=== PATIENT | male | born 1955 | race Caucasian/White ===

== ENCOUNTER 2020-05-16 12:52 | Inpatient (IN) | payer OTHER ==
[~2020-05-16] VITALS: Ht 188 cm; Wt 140.4 kg
[2020-05-16 13:54] LABS: BASOPHILS % (AUTO) 0.3 % (0.0-5.0); EOSINOPHILS % (AUTO) 1.6 % (0.0-8.0); HEMATOCRIT 43.1 % (42-54); MEAN CORPUSCULAR HGB CONC 32.3 g/dL (32.0-36.0); MEAN CORPUSCULAR VOLUME 99.3 fL (79-99); MONOCYTES % (AUTO) 8.2 % (3.0-13.0); NEUTROPHILS % (AUTO) 70.7 % (40.0-77.0); PLATELET COUNT (AUTO) 231 K/uL (130-400); RED BLOOD CELL COUNT(AUTO) 4.34 MIL/uL (4.50-6.20); RED CELL DISTRIBUTION WIDTH 13.4 % (11.0-15.5); WHITE BLOOD COUNT (AUTO) 9.8 K/uL (4.8-10.8)
[2020-05-16 14:14] LABS: INR 0.88 (0.85-1.15); PARTIAL THROMBOPLASTIN TIME 28.5 SEC (26.3-35.5); PROTHROMBIN TIME 9.6 SEC (9.6-11.6)
[2020-05-16 14:38] LABS: CARBON DIOXIDE 31 mmol/L (21-32); CHLORIDE 97 mmol/L (101-111); CREATININE 0.8 mg/dL (0.5-1.5); GLOMERULAR FILTR. RATE CALC 103 mL/min (>60); GLUCOSE,RANDOM 158 mg/dL (70-105); POTASSIUM 4.3 mmol/L (3.5-5.1); SODIUM SERUM 135 mmol/L (136-145); UREA NITROGEN, BLOOD 12 mg/dL (7-18)
[2020-05-16 14:51] LABS: ALANINE AMINOTRANSFERASE 20 U/L (12-78); ALBUMIN 3.2 g/dL (3.5-5.0); ASPARTATE AMINOTRANSFERASE 12 U/L (10-37); BILIRUBIN,TOTAL 0.4 mg/dL (0.2-1.0); CREATINE KINASE, TOTAL 48 U/L (21-232); MYOGLOBIN 21 ng/mL (10-92); TOTAL PROTEIN, SERUM 7.4 g/dL (6.0-8.3); TROPONIN I < 0.04 ng/mL (0.00-0.06)
[2020-05-16 15:10] LABS: APPEARANCE,URINE Clear (CLEAR); BILIRUBIN,URINE Negative (NEGATIVE); COLOR,URINE Yellow (YELLOW); GLUCOSE, URINE (UA) Negative (NEGATIVE); KETONES,URINE Negative (NEGATIVE); LEUKOCYTE ESTERASE ,URINE Negative (NEGATIVE); NITRATE,URINE Negative (NEGATIVE); OCCULT BLOOD,URINE Negative (NEGATIVE); PROTEIN,URINE Negative (NEGATIVE)
[2020-05-16] MEDS ORDERED: RENAL DOSE IV SCH (15:30)
[2020-05-16] MEDS: ZOSYN 3.375GM+NS 50ML 50 ML IV SCH (15:30)
[2020-05-16] MEDS ORDERED: VANCOMYCIN PROTOCOL PER PHARMACY IV SCH (15:30)
[2020-05-16] MEDS ORDERED: GUAIFENESIN-DM 200/20 MG 10 ML PO PRN (15:45)
[2020-05-16] MEDS ORDERED: LACTULOSE 20 GM/30 ML UDCUP PO PRN (15:45)
[2020-05-16] MEDS ORDERED: NITROGLYCERIN 0.4 MG SL TAB SL PRN (15:45)
[2020-05-16] MEDS ORDERED: COMPOUND IV REFRIGERATED 1 EACH IVSOLN MISC PRN (15:45)
[2020-05-16] MEDS ORDERED: DIPHENHYDRAMINE HCL 25 MG CAPSULE PO PRN (15:45)
[2020-05-16] MEDS ORDERED: ACETAMINOPHEN 325 MG TAB PO PRN (15:45)
[2020-05-16] MEDS ORDERED: DiphenhydrAMINE HCL 50 MG/ML VIAL IV PRN (15:45)
[2020-05-16] MEDS ORDERED: MAG HYDROX/AL HYDROX/SIMETH ES 30 ML SUSP UDCUP PO PRN (15:45)
[2020-05-16] MEDS ORDERED: ONDANSETRON HCL 4 MG/2 ML VIAL IV PRN (15:45)
[2020-05-16] MEDS: NICOTINE 14 MG/ 24 HR PATCH TD SCH (16:00)
[2020-05-16] MEDS ORDERED: VANCOMYCIN 2 GM in SODIUM CHLORIDE 0.9% 500ML 500 ML IV SCH (16:00)
[2020-05-16] MEDS ORDERED: ENOXAPARIN SODIUM 40 MG/0.4 ML SYRINGE SQ ONE (22:27)
[2020-05-16] MEDS ORDERED: FAMOTIDINE/PF 20 MG/2 ML VIAL IV ONE (22:27)
[2020-05-17] VITALS (20 sets, daily range): BP systolic 89–138; BP diastolic 56–86
[2020-05-17] MEDS: VANCOMYCIN 1.5 GM in SODIUM CHLORIDE 0.9% 250 ML IV SCH (00:43)
[2020-05-17] MEDS ORDERED: ZOSYN 3.375GM+NS 50ML 50 ML IV ONE (04:15)
[2020-05-17 06:55] LABS: BASOPHILS % (AUTO) 0.5 % (0.0-5.0); EOSINOPHILS % (AUTO) 1.9 % (0.0-8.0); HEMATOCRIT 42.4 % (42-54); LYMPHOCYTES % (AUTO) 28.5 % (21.0-51.0); MEAN CORPUSCULAR HEMOGLOBIN 31.1 pg (27.0-33.0); MEAN CORPUSCULAR HGB CONC 31.1 g/dL (32.0-36.0); MEAN CORPUSCULAR VOLUME 99.8 fL (79-99); MONOCYTES % (AUTO) 8.7 % (3.0-13.0); NEUTROPHILS % (AUTO) 60.1 % (40.0-77.0); PLATELET COUNT (AUTO) 251 K/uL (130-400); RED BLOOD CELL COUNT(AUTO) 4.25 MIL/uL (4.50-6.20); RED CELL DISTRIBUTION WIDTH 13.4 % (11.0-15.5); WHITE BLOOD COUNT (AUTO) 7.4 K/uL (4.8-10.8)
[2020-05-17 07:29] LABS: ALBUMIN 2.9 g/dL (3.5-5.0); BILIRUBIN,TOTAL 0.4 mg/dL (0.2-1.0); CREATININE 0.7 mg/dL (0.5-1.5); POTASSIUM 4.3 mmol/L (3.5-5.1); TOTAL PROTEIN, SERUM 6.8 g/dL (6.0-8.3)
--- NOTE | 2020-05-17 13:49 | NUR ---
DCP CM spoke to pt's spouse Kira Hussein discussed dc plans. Pt is independent prior to admission, lives at home with spouse. Denies any equipments/services. Feels safe to go back home, still drives, spouse able to assist with transportation and needs as necessary. DC plan to home once stable. CM to cont to follow up. Addendum: 05/17/20 at 1350 by LIMA DE DIOS LVN CM Amended: Links added.
[2020-05-17] MEDS ORDERED: PROPOFOL 10 MG/ML 20ML VIAL IV ONE (17:16)
[2020-05-17] MEDS ORDERED: MIDAZOLAM HCL 1 MG/ML 2ML VIAL ONE (17:16)
[2020-05-17] MEDS ORDERED: LIDOCAINE PF 2% 5ML ABBOJECT ONE (17:16)
[2020-05-17] MEDS ORDERED: ONDANSETRON HCL 4 MG/2 ML VIAL ONE (17:17)
[2020-05-17] MEDS ORDERED: FENTANYL CITRATE PF 50 MCG/1 ML 2ML VIAL ONE (17:17)
[2020-05-17] MEDS ORDERED: CEFAZOLIN SODIUM 1 GM VIAL ONE (17:49)
[2020-05-17] MEDS ORDERED: LIDOCAINE HCL 1% 20 ML VIAL ONE (17:51)
[2020-05-17] MEDS ORDERED: BUPIVACAINE/PF 0.5% 30ML VIAL ONE (17:51)
[2020-05-17] MEDS ORDERED: MEPERIDINE-PF 25 MG/ML SYG ONE (18:03)
[2020-05-17] MEDS ORDERED: ESMOLOL HCL 10 MG/ML 10 ML VIAL ONE (18:16)
[2020-05-17] MEDS ORDERED: PHENYLEPHRINE HCL 10 MG/ML 1ML VIAL IV ONE (18:23)
[2020-05-17] MEDS ORDERED: MORPHINE SULFATE 2 MG/ML 1ML SYG IM PRN (19:15)
--- NOTE | 2020-05-17 20:02 | NUR ---
NICOTINE PATCH DUE AT 1600 WAS SCANNED NOT GIVEN DUE TO PATIENT WAS IN ER THAN OR , I RECEIVED PATIENT FROM OR AT 1851, ZOSYN DUE AT 1730 SCANNED NOT GIVEN , PT IN OR AND RECEIVED ANCEF 3GM AT 1755.
[2020-05-17] MEDS ORDERED: SIMV80TA91 PO (22:26)
[2020-05-17] MEDS ORDERED: GLIP10TA9 PO (22:26)
[2020-05-17] MEDS ORDERED: OMEG-125 PO (22:26)
[2020-05-17] MEDS ORDERED: METF-444 PO (22:26)
[2020-05-17] MEDS ORDERED: ACET-2743 PO (22:26)
[2020-05-17] MEDS ORDERED: VITAMIN D3 (22:26)
[2020-05-17] MEDS ORDERED: CLIN300C9 PO (22:26)
[2020-05-17] MEDS ORDERED: OXYC1TAB12 PO (22:26)
[2020-05-17] MEDS ORDERED: LISI-613 PO (22:26)
[2020-05-17] MEDS ORDERED: GABA300C PO (22:26)
[2020-05-17] MEDS ORDERED: LIDOCAINE PATCH TP (22:26)
[2020-05-17] MEDS ORDERED: MIRT30TA6 PO (22:26)
[2020-05-17] MEDS ORDERED: GLUCAGON 1MG KIT 1 MG ML IM PRN (23:30)
[2020-05-17] MEDS ORDERED: DEXTROSE 50%-WATER 50 ML DISP.SYRIN IV PRN (23:30)
[2020-05-18] VITALS (9 sets, daily range): BP systolic 83–131; BP diastolic 54–89
[2020-05-18] MEDS: ZOSYN 3.375GM+NS 50ML 50 ML IV SCH ×3 (00:12→15:30)
[2020-05-18] MEDS ORDERED: VANCOMYCIN 1GM+NS 250ML 500 ML IV ONE (00:31)
--- NOTE | 2020-05-18 00:33 | NUR ---
Patient resting in bed with eyes closed, but wakes up easily. B/P has decreased since arriving on this floor, b/p currently 78/60, p 121, asymptomatic. Patient fixed in bed, foot of bed elevated. States this has happened before at home and while he was at [facility], states has seen Dr. Yates in the past and decreased Lisinopril to 5mg daily. He last took his Lisinopril yesterday am, no b/p meds takes tonight. Will continue to monitor.
[2020-05-18] MEDS: FAMOTIDINE 20MG TAB 20 MG TAB PO SCH ×3 (00:40→21:00)
--- NOTE | 2020-05-18 01:00 | NUR ---
B/P increased, currently 89/56, p 121, patient continues asymptomatic. Wound vac to left foot at 125 continuous, working, but no drainage noted to canister or to dressing. Will continue to monitor.
--- NOTE | 2020-05-18 01:35 | NUR ---
B/P again decreased to 77/51, P 122, easily arousable, continues asymptomatic. Elieser Solano N.P. was called to inform, new order given for bolus of NS 250ml x1. Will continue to monitor.
[2020-05-18] MEDS ORDERED: SODIUM CHLORIDE 0.9% 250 ML IV SCH (02:00)
--- NOTE | 2020-05-18 02:00 | NUR ---
B/P 95/63, P 120 after bolus of NS 250ml x1. Will continue to monitor.
[2020-05-18] MEDS ORDERED: LISI10TA7 PO (05:40)
[2020-05-18] MEDS: INSULIN HUMULIN R 100 UNIT/ML 3ML SQ SCH ×4 (05:42→21:00)
--- NOTE | 2020-05-18 06:00 | NUR ---
B/P IMPROVED AFTER BOLUS OF NS 250ML, PATIENT REMAINED ASYMPTOMATIC. WILL CONTINUE TO MONITOR.
[2020-05-18 06:04] LABS: BASOPHILS % (AUTO) 0.5 % (0.0-5.0); EOSINOPHILS % (AUTO) 1.8 % (0.0-8.0); LYMPHOCYTES % (AUTO) 38.6 % (21.0-51.0); MEAN CORPUSCULAR HEMOGLOBIN 30.8 pg (27.0-33.0); MEAN CORPUSCULAR HGB CONC 30.7 g/dL (32.0-36.0); MEAN CORPUSCULAR VOLUME 100.5 fL (79-99); MONOCYTES % (AUTO) 8.5 % (3.0-13.0); NEUTROPHILS % (AUTO) 50.3 % (40.0-77.0); PLATELET COUNT (AUTO) 235 K/uL (130-400); RED BLOOD CELL COUNT(AUTO) 4.28 MIL/uL (4.50-6.20); RED CELL DISTRIBUTION WIDTH 13.6 % (11.0-15.5); WHITE BLOOD COUNT (AUTO) 7.8 K/uL (4.8-10.8)
[2020-05-18 06:37] LABS: ALBUMIN 2.8 g/dL (3.5-5.0); BILIRUBIN,TOTAL 0.2 mg/dL (0.2-1.0); CREATININE 0.7 mg/dL (0.5-1.5); POTASSIUM 3.9 mmol/L (3.5-5.1); TOTAL PROTEIN, SERUM 6.5 g/dL (6.0-8.3)
[2020-05-18] MEDS ORDERED: SODIUM CHLORIDE 0.9% 500ML 500 ML IV SCH (08:30)
[2020-05-18] MEDS ORDERED: CHLORDIAZEPOXIDE HCL 25 MG CAP PO SCH (08:30)
[2020-05-18] MEDS ORDERED: OXYCODONE PO PRN (09:00)
[2020-05-18] MEDS ORDERED: ACETAMINOPHEN PO PRN (09:00)
[2020-05-18] MEDS: LISINOPRIL 20 MG TABLET PO SCH (10:30)
[2020-05-18] MEDS: LISINOPRIL 5 MG TABLET PO SCH (10:30)
[2020-05-18] MEDS: GABAPENTIN 300 MG CAPSULE PO SCH ×2 (10:31→21:51)
[2020-05-18] MEDS: ENOXAPARIN SODIUM 40 MG/0.4 ML SYRINGE SQ SCH ×2 (10:32→10:38)
[2020-05-18] MEDS: METOPROLOL TARTRATE 25 MG TAB PO SCH ×2 (10:34→21:50)
[2020-05-18] MEDS: NICOTINE 14 MG/ 24 HR PATCH TD SCH ×2 (10:34→10:38)
[2020-05-18] MEDS ORDERED: ASPIRIN 81MG TAB.CHEW PO SCH (12:00)
[2020-05-18] MEDS: VANCOMYCIN 1.5 GM in SODIUM CHLORIDE 0.9% 250 ML IV SCH ×2 (12:31→23:53)
[2020-05-18] MEDS ORDERED: ERGOCALCIFEROL (VITAMIN D2) 50,000 UNIT CAPSULE PO SCH (15:45)
--- NOTE | 2020-05-18 17:44 | NUR ---
attempted to call dr. rich to report to him the critical value of d dimer 1047
--- NOTE | 2020-05-18 17:58 | NUR ---
notified dr. rich about the d-dimer of [id number]
[2020-05-18] MEDS ORDERED: METOPROLOL TARTRATE 25 MG TAB PO SCH (21:00)
--- NOTE | 2020-05-18 21:28 | NUR ---
Report given to Mr. Abe RN.
[2020-05-18] MEDS: MIRTAZAPINE 15 MG TABLET PO SCH (21:51)
[2020-05-18] MEDS: SIMVASTATIN 20 MG TABLET PO SCH (21:51)
[2020-05-18] MEDS: LIDOCAINE 5% TOPICAL PATCH TP SCH (21:51)
--- NOTE | 2020-05-18 22:15 | NUR ---
Pt. transferred to room 232 via bed with Wound Vac continuously attached to left foot at 125mmHg. AOx4. Pt. instructed on transfer procedure. Agreed and verbalized understanding. Pt. transferred to room with personal belongings. No untoward incident happened. Distress / discomfort not noted. - Tolerated transfer well.
[2020-05-19] MEDS: ZOSYN 3.375GM+NS 50ML 50 ML IV SCH ×3 (00:49→21:07)
[2020-05-19 03:00] VITALS: BP 123/79
[2020-05-19 06:54] LABS: BASOPHILS % (AUTO) 0.4 % (0.0-5.0); EOSINOPHILS % (AUTO) 2.1 % (0.0-8.0); HEMATOCRIT 44.3 % (42-54); LYMPHOCYTES % (AUTO) 34.3 % (21.0-51.0); MEAN CORPUSCULAR HGB CONC 31.4 g/dL (32.0-36.0); MEAN CORPUSCULAR VOLUME 101.8 fL (79-99); MONOCYTES % (AUTO) 8.7 % (3.0-13.0); NEUTROPHILS % (AUTO) 54.2 % (40.0-77.0); PLATELET COUNT (AUTO) 253 K/uL (130-400); RED BLOOD CELL COUNT(AUTO) 4.35 MIL/uL (4.50-6.20); RED CELL DISTRIBUTION WIDTH 13.3 % (11.0-15.5); WHITE BLOOD COUNT (AUTO) 7.7 K/uL (4.8-10.8)
[2020-05-19 07:12] LABS: ALBUMIN 2.8 g/dL (3.5-5.0); BILIRUBIN,TOTAL 0.3 mg/dL (0.2-1.0); CREATININE 0.6 mg/dL (0.5-1.5); POTASSIUM 4.2 mmol/L (3.5-5.1); TOTAL PROTEIN, SERUM 6.6 g/dL (6.0-8.3)
[2020-05-19 08:00] VITALS: BP 136/101
[2020-05-19] MEDS: ASCORBIC ACID 500 MG TAB PO SCH (08:29)
[2020-05-19] MEDS: ZINC SULFATE 220 CAPSULE PO SCH (08:29)
[2020-05-19] MEDS: ASPIRIN 81MG TAB.CHEW PO SCH (08:29)
[2020-05-19] MEDS: LISINOPRIL 20 MG TABLET PO SCH (08:30)
[2020-05-19] MEDS: ENOXAPARIN SODIUM 40 MG/0.4 ML SYRINGE SQ SCH (08:30)
[2020-05-19] MEDS: LISINOPRIL 5 MG TABLET PO SCH (08:30)
[2020-05-19] MEDS: FAMOTIDINE 20MG TAB 20 MG TAB PO SCH ×2 (08:31→20:51)
[2020-05-19] MEDS: METOPROLOL TARTRATE 25 MG TAB PO SCH ×2 (08:32→21:08)
[2020-05-19] MEDS: NICOTINE 14 MG/ 24 HR PATCH TD SCH (08:43)
[2020-05-19] MEDS: GABAPENTIN 300 MG CAPSULE PO SCH ×2 (09:00→21:09)
[2020-05-19] MEDS: VANCOMYCIN 1.5 GM in SODIUM CHLORIDE 0.9% 250 ML IV SCH ×2 (09:46→21:07)
[2020-05-19] MEDS ORDERED: SODIUM CHLORIDE 0.9% 1000ML 1,000 ML IV SCH (11:49)
[2020-05-19 12:00] VITALS: BP 127/68
--- NOTE | 2020-05-19 12:54 | NUR ---
NEEDS NEW ORDER Addendum: 05/19/20 at 1255 by JO ANN JIN, PT PT Amended: Links added.
[2020-05-19] MEDS: INSULIN HUMULIN R 100 UNIT/ML 3ML SQ SCH ×3 (15:37→21:00)
[2020-05-19 16:00] VITALS: BP 115/66
--- NOTE | 2020-05-19 18:20 | NUR ---
MD UPDATE CALL RECEIVED FROM DR ORDOÑEZ. UPDATED ON PT'S STATUS & PLAN OF CARE. NO NEW ORDERS RECVD @ THIS TIME.
--- NOTE | 2020-05-19 18:27 | NUR ---
PLASMA CALL RECEIVED FROM DR BOLAND, @ THIS TIME ORDER TO BE ENTERED BY HOSPITALIST. IF UNABLE TO ENTER ORDER MD TO ADDRESS ORDER TOMORROW.
[2020-05-19 19:56] VITALS: BP 128/95
[2020-05-19] MEDS: ENOXAPARIN SODIUM 80 MG/0.8 ML SQ SCH (21:08)
[2020-05-19] MEDS: SIMVASTATIN 20 MG TABLET PO SCH (21:09)
[2020-05-19] MEDS: LIDOCAINE 5% TOPICAL PATCH TP SCH (21:09)
[2020-05-19] MEDS: MIRTAZAPINE 15 MG TABLET PO SCH (21:09)
[2020-05-19 23:20] VITALS: BP 138/83
[2020-05-20 03:20] VITALS: BP 109/73
[2020-05-20 06:02] LABS: HEMATOCRIT 43.5 % (42-54); MEAN CORPUSCULAR HEMOGLOBIN 31.1 pg (27.0-33.0); MEAN CORPUSCULAR HGB CONC 31.7 g/dL (32.0-36.0); RED BLOOD CELL COUNT(AUTO) 4.44 MIL/uL (4.50-6.20); WHITE BLOOD COUNT (AUTO) 6.7 K/uL (4.8-10.8)
[2020-05-20 06:20] LABS: INR 0.97 (0.85-1.15); PROTHROMBIN TIME 10.5 SEC (9.6-11.6)
[2020-05-20] MEDS: ZOSYN 3.375GM+NS 50ML 50 ML IV SCH ×3 (06:24→20:52)
[2020-05-20 06:25] LABS: CREATININE 0.7 mg/dL (0.5-1.5); CRP QUANTITATIVE 23.8 mg/L (0.00-9.0); POTASSIUM 3.9 mmol/L (3.5-5.1)
[2020-05-20] MEDS: INSULIN HUMULIN R 100 UNIT/ML 3ML SQ SCH ×4 (06:25→23:20)
[2020-05-20 07:00] VITALS: BP 160/102
[2020-05-20] MEDS: ASPIRIN 81MG TAB.CHEW PO SCH (08:38)
[2020-05-20] MEDS: ZINC SULFATE 220 CAPSULE PO SCH (08:38)
[2020-05-20] MEDS: ENOXAPARIN SODIUM 80 MG/0.8 ML SQ SCH ×2 (08:38→21:07)
[2020-05-20] MEDS: GABAPENTIN 300 MG CAPSULE PO SCH ×2 (08:39→20:53)
[2020-05-20] MEDS: METOPROLOL TARTRATE 25 MG TAB PO SCH ×2 (08:39→20:53)
[2020-05-20] MEDS: LISINOPRIL 5 MG TABLET PO SCH (08:40)
[2020-05-20] MEDS: LISINOPRIL 20 MG TABLET PO SCH (08:40)
[2020-05-20] MEDS: NICOTINE 14 MG/ 24 HR PATCH TD SCH (08:40)
[2020-05-20] MEDS: VANCOMYCIN 1.5 GM in SODIUM CHLORIDE 0.9% 250 ML IV SCH ×2 (08:40→23:08)
[2020-05-20] MEDS: ASCORBIC ACID 500 MG TAB PO SCH (08:41)
[2020-05-20] MEDS: HYDRALAZINE HCL 20 MG/ML VIAL IV PRN ×2 (08:48→17:16)
[2020-05-20] MEDS: FAMOTIDINE 20MG TAB 20 MG TAB PO SCH (09:00)
[2020-05-20] MEDS: FAMOTIDINE/PF 20 MG/2 ML VIAL IV SCH ×2 (10:23→20:53)
[2020-05-20] MEDS: METHYLPREDNISOLONE SOD SUCC 40MG/ML 1ML IVP SCH ×2 (10:24→17:16)
[2020-05-20 11:00] VITALS: BP 143/108
[2020-05-20 16:00] VITALS: BP 160/106
--- NOTE | 2020-05-20 18:21 | NUR ---
PATIENT COVID NEGATIVE. SPOKE WITH DR. GARZA MADE AWARE, NEW ORDER TRANSFER PATIENT OUT OF COVID UNIT
[2020-05-20 19:30] VITALS: BP 139/92
[2020-05-20] MEDS: MIRTAZAPINE 15 MG TABLET PO SCH (20:52)
[2020-05-20] MEDS: SIMVASTATIN 20 MG TABLET PO SCH (20:52)
[2020-05-20] MEDS: LIDOCAINE 5% TOPICAL PATCH TP SCH (21:00)
[2020-05-20 23:58] VITALS: BP 131/86
--- NOTE | 2020-05-21 00:16 | NUR ---
NOTE SPOKE WITH PATIENT AND ASKED HIM ABOUT AGREEING TO USE RESTRICTIVE PREPARATION OPERATOR. HE AGREES TO WEAR MONITOR NOW. CONTACTED KATE Tripcover, SAYS NO MONITORS AVAILABLE AT THIS TIME. THE MONITOR ASSIGNED TO HIM HAS BEEN REASSIGNED SINCE HE REFUSED TO WEAR IT. KATE SAYS WILL CONTACT ME IF/WHEN ANOTHER MONITOR BECOMES AVAILABLE.
[2020-05-21] MEDS: METHYLPREDNISOLONE SOD SUCC 40MG/ML 1ML IVP SCH (01:52)
[2020-05-21 03:57] VITALS: BP 128/88
[2020-05-21 04:02] LABS: CRP QUANTITATIVE 23.5 mg/L (0.00-9.0)
[2020-05-21] MEDS: ZOSYN 3.375GM+NS 50ML 50 ML IV SCH ×3 (05:39→20:31)
[2020-05-21 06:15] LABS: CREATININE 0.8 mg/dL (0.5-1.5); MAGNESIUM 1.7 mg/dL (1.80-2.40); POTASSIUM 3.9 mmol/L (3.5-5.1)
[2020-05-21] MEDS: INSULIN HUMULIN R 100 UNIT/ML 3ML SQ SCH ×4 (06:32→21:00)
--- NOTE | 2020-05-21 06:37 | NUR ---
MD ROUNDS DR. ORDOÑEZ HERE TO SEE PATIENT. SPOKE WITH HIM ABOUT WHAT IS NEXT ON HIS PLAN OF CARE. PATIENT INQUIRED ABOUT WOUND VAC, IF HE MIGHT NEED TO HAVE THAT AT HOME, DR ORDOÑEZ SAID MORE THAN LIKELY NO. ORDERS RECEIVED TO CALL DR. VILLARREAL TODAY TO NOTIFY THAT PATIENT IS OUT OF COVID UNIT AND SEE WHEN HE CAN PROCEED WITH ARMORED TRANSPORT SERVICE MANAGER PROCEDURE THAT HAD BEEN CANCELLED.
--- NOTE | 2020-05-21 08:00 | NUR ---
AM ROUNDS. SITTING ON SIDE OF BED EATING BKFT. WOUND VAC IN PLACE TO LATERAL ASPECT OF LT. FOOT.
[2020-05-21 08:16] VITALS: BP 116/79
--- NOTE | 2020-05-21 10:00 | NUR ---
HAS BEEN WALKING IN HALLWAY, DISCONNECTED SELF FROM WOUND VAC.
[2020-05-21] MEDS: ASPIRIN 81MG TAB.CHEW PO SCH (10:14)
[2020-05-21] MEDS: LISINOPRIL 5 MG TABLET PO SCH (10:14)
[2020-05-21] MEDS: ZINC SULFATE 220 CAPSULE PO SCH (10:14)
[2020-05-21] MEDS: ASCORBIC ACID 500 MG TAB PO SCH (10:15)
[2020-05-21] MEDS: METOPROLOL TARTRATE 25 MG TAB PO SCH ×3 (10:15→20:32)
[2020-05-21] MEDS: LISINOPRIL 20 MG TABLET PO SCH (10:15)
[2020-05-21] MEDS: GABAPENTIN 300 MG CAPSULE PO SCH ×2 (10:15→20:32)
[2020-05-21] MEDS: NICOTINE 14 MG/ 24 HR PATCH TD SCH (10:16)
[2020-05-21] MEDS: FAMOTIDINE/PF 20 MG/2 ML VIAL IV SCH ×2 (10:18→20:31)
[2020-05-21] MEDS: ENOXAPARIN SODIUM 80 MG/0.8 ML SQ SCH (10:31)
[2020-05-21] MEDS: VANCOMYCIN 1.5 GM in SODIUM CHLORIDE 0.9% 250 ML IV SCH ×2 (10:35→23:13)
[2020-05-21 11:44] VITALS: BP 124/97
--- NOTE | 2020-05-21 11:45 | NUR ---
CM NOTE/DCP/REFUSED [facility] MEET WITH PATIENT IN ROOM FOR DC PLANNING. INFORMED PATIENT OF [facility] REFERRAL FOR 6 WEEKS OF IV ANTIBIOTICS. PER PATIENT, REFUSING TO GO AND WANTS TO GO HOME. NOTED WOUND VAC TO LEFT FOOT. PER PATIENT, STATES DR. ORDOÑEZ PLAN WAS TO DC WOUND VAC AND START ON PHYSICAL THERAPY, CHART REVIEWED, NO ORDER FOR WOUND VAC REMOVAL CHANGE IN WOUND CARE. PATIENT MADE AWARE, PER PATIENT, DOESNT WANT TO GO TO [facility]. PRIMARY NURSE, FRANKLIN HUMPHREY, MADE AWARE WELL DR. GARZA WHO WAS IN NURSES STATION. PER MD, WILL NEED DR. PADILLA TO REVIEW AND SEE IF IV ABT CAN BE GIVEN AT HOME. ALSO REQUIRES WOUND CARE AND PHYSICAL THERAPY, CM TO FOLLOW UP ACCORDINGLY.
--- NOTE | 2020-05-21 14:00 | NUR ---
DR. GOMEZ RIFF IN TO SEE PT. ORDERS GIVEN, PLAN TO TAKE TO DUST COLLECTOR ATTENDANT TOMORROW FOR ANGIOGRAM. PROCEDURE EXPLAINED TO PT. AND AGREES.
[2020-05-21 17:00] VITALS: BP 134/52
[2020-05-21 19:00] VITALS: BP 112/79
[2020-05-21] MEDS: MIRTAZAPINE 15 MG TABLET PO SCH (20:32)
[2020-05-21] MEDS: SIMVASTATIN 20 MG TABLET PO SCH (20:32)
[2020-05-21] MEDS: HYDROMORPHONE 1 MG/1 ML AMP IVP PRN ×2 (20:44→23:32)
[2020-05-21] MEDS: LIDOCAINE 5% TOPICAL PATCH TP SCH (20:44)
[2020-05-22] VITALS (8 sets, daily range): BP systolic 95–145; BP diastolic 48–97
[2020-05-22] MEDS: HYDROMORPHONE 1 MG/1 ML AMP IVP PRN ×2 (02:07→04:17)
[2020-05-22] MEDS: ZOSYN 3.375GM+NS 50ML 50 ML IV SCH (04:16)
[2020-05-22 04:52] LABS: CRP QUANTITATIVE 16.1 mg/L (0.00-9.0)
[2020-05-22 05:11] LABS: CREATININE 0.8 mg/dL (0.5-1.5); MAGNESIUM 1.8 mg/dL (1.80-2.40); POTASSIUM 4.1 mmol/L (3.5-5.1)
[2020-05-22] MEDS: INSULIN HUMULIN R 100 UNIT/ML 3ML SQ SCH ×2 (05:26→11:30)
--- NOTE | 2020-05-22 07:03 | NUR ---
MD VISIT DR ORDOÑEZ IN TO SEE PT. UPDATED ON PT'S STATUS & PLAN OF CARE. WOUND VAC MAY BE DC'D @ THIS TIME. ORDERS ENTERED BY DR ORDOÑEZ.
[2020-05-22] MEDS ORDERED: HEPARIN SODIUM 1000UNIT/ML 10ML VIAL ONE (07:05)
[2020-05-22] MEDS ORDERED: IODIXANOL 320 MG/ML 100 ML VIAL ONE (07:05)
[2020-05-22] MEDS ORDERED: MIDAZOLAM HCL 1 MG/ML 2ML VIAL ONE (07:05)
[2020-05-22] MEDS ORDERED: LIDOCAINE HCL 2% 20ML ONE (07:06)
[2020-05-22] MEDS ORDERED: FENTANYL CITRATE PF 50 MCG/1 ML 2ML VIAL ONE (07:06)
--- NOTE | 2020-05-22 07:15 | NUR ---
STATUS PT TAKEN TO RN CHILD VIA BED FOR LLE PTCA ANGIOGRAM BY DR Jaime VILLARREAL. TELE EBONIE REMOVED.
[2020-05-22] MEDS ORDERED: NITROGLYCERIN 2 MG/VIAL VIAL IV ONE (07:34)
--- NOTE | 2020-05-22 08:55 | NUR ---
STATUS PT RECEIVED FROM EMT B VIA BED S/P LLE PTCA ANGIOGRAM BY DR Jaime VILLARREAL. NO INTERVENTION. DR PADILLA CONSULTED & NOTIFIED BY DR Jiame VILLARREAL. PLAN FOR PT TO HAVE LLE BYPASS BY DR PAIDLLA TOMORROW. PT TO CT ANGIO OF LLE TODAY. RT GROIN DSG DRY & INTACT. NO BLEEDING. NO HEMATOMA NOTED. PUNCTURE SITE SOFT, NON-TENDER. (+) RLE WEAK PEDAL PULSE. BLE WARM TO TOUCH. PT INFORMED TO MAINTAIN BEDREST X 6 HRS. PT INFORMED NPO STATUS TO BE CONTINUED SINCE CT ANGIO OF LLE TO BE DONE & NEEDS TO BE NPO. PT REFUSING TO HAVE CT ANGIO OF LLE DONE. PT STATES REFUSING TO POSSIBLY HAVING ANY SURGERY DONE TO HIS LEG. PT STATES, HE WILL BE GOING HOME TOMORROW. PT REQUESTING TO HAVE PERSONAL BELONGINGS. PT C/O BACK PAIN & WILL BE TAKING OWN HYDROCODONE FROM HOME.
[2020-05-22] MEDS: NICOTINE 14 MG/ 24 HR PATCH TD SCH ×2 (09:00→09:55)
[2020-05-22] MEDS: ZINC SULFATE 220 CAPSULE PO SCH ×2 (09:00→09:54)
[2020-05-22] MEDS: ASCORBIC ACID 500 MG TAB PO SCH ×2 (09:00→09:52)
--- NOTE | 2020-05-22 09:06 | NUR ---
MD NOTIFICATION DR Jaime VILLARREAL CALL DON RECEIVED. INFORMED PT REFUSING TO HAVE CT ANGIO OF LLE & REFUSING SURGERY.
--- NOTE | 2020-05-22 09:14 | NUR ---
MD VISIT DR GARZA IN TO SEE PT. UPDATED ON PT'S STATUS & PLAN OF CARE. INFORMED MD PT REFUSING CT ANGIO OF LLE & SURGERY.
[2020-05-22] MEDS: LISINOPRIL 5 MG TABLET PO SCH (09:50)
[2020-05-22] MEDS: ASPIRIN 81MG TAB.CHEW PO SCH (09:50)
[2020-05-22] MEDS: GABAPENTIN 300 MG CAPSULE PO SCH (09:51)
[2020-05-22] MEDS: METOPROLOL TARTRATE 25 MG TAB PO SCH (09:51)
[2020-05-22] MEDS: LISINOPRIL 20 MG TABLET PO SCH (09:51)
[2020-05-22] MEDS: FAMOTIDINE/PF 20 MG/2 ML VIAL IV SCH (09:52)
[2020-05-22] MEDS: VANCOMYCIN 1.5 GM in SODIUM CHLORIDE 0.9% 250 ML IV SCH (09:56)
--- NOTE | 2020-05-22 10:00 | NUR ---
AM MEDICATIONS PT REFUSING SEVERAL AM MEDICATIONS. PT UPSET. PT STATES HAVING TAKEN OWN MEDICATIONS FROM HOME. C/O MEDICATIONS BEING GIVEN "TOO LATE." INFORMED PT AM MEDS WEREN'T GIVEN THIS AM DUE TO NPO STATUS & HAVING LLE PTCA ANGIOGRAM. PT CONTINUES TO ARGUE & REFUSES MEDS. PT FURTHER STATES, HE WILL BE TALKING TO INFORMATICIST FROM [place] TO MAKE ARRANGEMENT S TO LEAVE HOME TODAY. REMINDED PT, NONE OF THE DRs TAKING CARE OF HIM HAVE GIVEN CLEARED HIM FOR DC. PT INSISTS HE WILL BE LEAVING HOME TODAY INSTEAD OF TOMORROW.
--- NOTE | 2020-05-22 12:17 | NUR ---
STATUS ANSWERED PT'S CALL LIGHT. UPON ENTERING PT'S RM, PT SITTING UP IN BED, STATING HE'S LEAVING HOME RIGHT NOW. INFORMED PT NO ORDER FOR DISCHARGE HAS BEEN GIVEN BY ANY MD. EXPLAINED LEAVING AMA. PT STATES UNDERSTANDING AMA & HAD LEFT OTHER PLACES AMA. PT ASKED TO LAY DOWN TO ASSESS RT GROIN, SINCE BEDREST POST LLE PTCA ANGIO INCOMPLETE @ THIS TIME. RT GROIN DSG DRY & INTACT. NO BLEEDING, NO HEMATOMA. PUNCTURE SITE SOFT, NONTENDER. RLE PINK & WARM TO TOUCH. NEG FOR PSEUDOANURYSM PER US. TELE EBONIE REMOVED @ THIS TIME. IV DC'D. WOUND VAC TO LT FOOT DC'D & WET TO DRY DSG APPLIED. PT REQUESTING TO HAVE SCRIPTS FOR MEDICATIONS. PT INFORMED NO SCRIPTS AVAILABLE SINCE NO DR HAD CLEARED HIM FOR DC HOME & WILL BE LEAVING AMA. AMA FORM EXPLAINED TO PT. QUESTIONS ENCOURAGED & CLARIFIED. AMA FORM READ BY PT & SIGNED. PT TO GATHER PERSONAL BELONGINGS. PER PT, SPOUSE TO LEAK [facility] SUPER[facility]OR [facility].
--- NOTE | 2020-05-22 12:35 | NUR ---
AMA DISCHARGE PER PT, SPOUSE HERE TO TAKE PT HOME. PT TAKEN TO PRIVATE VEHICLE VIA WC BY Anaid VICK RN. NO DISTRESS NOTED.
[2020-05-23] MEDS ORDERED: METHYLPREDNISOLONE SOD SUCC 40MG/ML 1ML ONE (04:33)
== END 2020-05-22 12:35 | disposition left against medical advice (07) | DRG 622 ==
LOC: EDH 12:52 → EDHIP 15:34 → 3AH 05-17 20:55 → 2AH 05-18 22:03 → 4CH 05-20 20:20
PROVIDERS: ADMIT Family Medicine; ATTEND Family Medicine
PROC: 0JBR0ZZ Excision of Left Foot Subcutaneous Tissue and Fascia, Open Approach (ICD-10-PCS; principal; 2020-05-17 15:30)
PROC: B41D1ZZ Fluoroscopy of Aorta and Bilateral Lower Extremity Arteries using Low Osmolar Contrast (ICD-10-PCS; 2020-05-22)
DX: E11.69 Type 2 diabetes mellitus with other specified complication (principal); J96.90 Respiratory failure, unspecified, unspecified whether with hypoxia or hypercapnia; L02.612 Cutaneous abscess of left foot; L03.116 Cellulitis of left lower limb; M86.8X7 Other osteomyelitis, ankle and foot; J44.9 Chronic obstructive pulmonary disease, unspecified; S91.332A Puncture wound without foreign body, left foot, initial encounter; I10 Essential (primary) hypertension; E11.42 Type 2 diabetes mellitus with diabetic polyneuropathy; E78.5 Hyperlipidemia, unspecified; F17.210 Nicotine dependence, cigarettes, uncomplicated; E11.40 Type 2 diabetes mellitus with diabetic neuropathy, unspecified; E11.621 Type 2 diabetes mellitus with foot ulcer; L97.529 Non-pressure chronic ulcer of other part of left foot with unspecified severity; E66.01 Morbid (severe) obesity due to excess calories; B95.62 Methicillin resistant Staphylococcus aureus infection as the cause of diseases classified elsewhere; I48.91 Unspecified atrial fibrillation; I70.202 Unspecified atherosclerosis of native arteries of extremities, left leg; Z20.828 Contact with and (suspected) exposure to other viral communicable diseases; E11.51 Type 2 diabetes mellitus with diabetic peripheral angiopathy without gangrene; W45.0XXA Nail entering through skin, initial encounter; Y93.89 Activity, other specified; Y92.89 Other specified places as the place of occurrence of the external cause; Y99.8 Other external cause status; Z68.39 Body mass index [BMI] 39.0-39.9, adult; Z89.421 Acquired absence of other right toe(s); Z91.19 Patient's noncompliance with other medical treatment and regimen; Z91.14 Patient's other noncompliance with medication regimen; Z83.3 Family history of diabetes mellitus; Z82.3 Family history of stroke; Z82.49 Family history of ischemic heart disease and other diseases of the circulatory system
CPT/HCPCS: 36200; 36415; 71045; 73718; 75710; 76882; 80048; 80053; 80202; 81003; 82550; 82728; 82948; 83036; 83605; 83615; 83735; 83874; 84145; 84484; 85025; 85027; 85378; 85610; 85651; 85730; 86140; 87040; 87070; 87076; 87077; 87088; 87186; 87205; 87804; 93005; 93925; 93971; 97039; 99156; 99157; C1894; G0378; J0360; J0690; J1170; J1644; J1650; J1815; J2001; J2175; J2250; J2370; J2405; J2543; J2704; J2920; J3010; J3370; J3490; J7040; J7050; Q9967; U0003

== ENCOUNTER → 2020-12-06 | Outpatient (CLI) | payer OTHER ==
[~2020-12-06] MED LIST: ACET-2743 PO; CLIN300C10 PO; GABA300C PO; GLIP10TA9 PO; LIDOCAINE PATCH TP; LISI10TA7 PO; METF-444 PO; MIRT30TA6 PO; OMEG-125 PO; OXYC1TAB12 PO; REGADENOSON 0.4 MG/5 ML PF SYG IVP SCH; SIMV80TA91 PO; VITAMIN D3
== END | disposition home or self-care (01) ==
LOC: SHCH 08:02
PROVIDERS: ATTEND Internal Medicine
DX: I50.1 Left ventricular failure, unspecified (principal)
CPT/HCPCS: 78452; 93017; 96374; A9500 ×2; J2785